=== PATIENT | female | born 1990 | race African-American/Black ===

== ENCOUNTER → 2024-09-14 10:43 | Outpatient (BNVA) | payer OTHER, SELFPAY | PROVIDERS: Visit Provider Psychiatry & Neurology Psychiatry | DX: F60.3 Borderline personality disorder (principal); F33.2 Major depressive disorder, recurrent severe without psychotic features; F10.10 Alcohol abuse, uncomplicated; F15.21 Other stimulant dependence, in remission; F43.12 Post-traumatic stress disorder, chronic | CPT/HCPCS: 80061; 83036 ==

== ENCOUNTER 2024-11-24 15:39 | Emergency (ER) | payer BC, MEDICAID, SELFPAY ==
[2024-09-15 12:55] VITALS: BP 133/80; BMI 48.1
[2024-11-24 15:43] VITALS: BP 136/83; PULSE 115; RESP 19; TEMP 36.8; O2SAT 98; BMI 48.9
--- NOTE | 2024-11-24 15:43 | XRR_ITS ---
PROCEDURE INFORMATION: Exam: XR Right Hip Exam date and time: 11/24/2024 5:00 PM Age: 34 years old Clinical indication: Hip pain; Right hip TECHNIQUE: Imaging protocol: Radiologic exam of the right hip. Views: 1 view hip with pelvis when performed. COMPARISON: No relevant prior studies available. FINDINGS: Bones/joints: No acute fracture or dislocation. Minimal degenerative change. Femoroacetabular joint spacing appears preserved. Soft tissues: Unremarkable. XR/XR hip RT 2-3V wo/w pel* [id number] IMPRESSION: No acute findings.
--- NOTE | 2024-11-24 17:10 | W.ED.EXTPRO ---
HPI - Extremity Problem General: Chief complaint: Extremity Problem,Nontraumatic Stated complaint: trouble with hip on right side Time Seen by Provider: 11/24/24 17:02 Source: patient Mode of arrival: ambulatory Limitations: no limitations History of Present Illness: 34-year-old female states she has right hip pain has been going on for roughly 2 years. States its worsened over the last 2 months states its much worse with ambulation is improved with rest denies any injuries states pain mainly in her hip does not radiate down her leg. States she has not seen anyone for this issue in the past. Rates her pain a 5 out of 10 currently Associated symptoms: Deny chest pain, fever(s) or rash Related Data Previous Rx's ?Medication ?Instructions ?Recorded doxepin 100 mg capsule 100 mg PO .HS #30 caps 09/01/24 hydroxyzine HCl 50 mg tablet 100 mg (2 x 50 mg) PO BID PRN 09/01/24 insomnia #60 tabs prazosin 2 mg capsule 2 mg PO .HS #30 caps 09/01/24 methocarbamol 750 mg tablet 750 mg PO Q6H PRN spasms #20 tabs 11/24/24 naproxen 500 mg tablet (Naprosyn) 500 mg PO BID PRN pain #20 tabs 11/24/24 Allergies Allergy/AdvReac Type Severity Reaction Status Date / Time Penicillins Allergy Severe Anaphylaxis Verified 11/24/24 15:47 trazodone AdvReac Intermediate Heart Uncoded 09/01/24 11:42 races & extremely dizzy Review of Systems Const: Denies: fever(s), chills, body aches or change in appetite ENMT: Denies: throat pain or dental pain Card: Denies: chest pain Resp: Denies: dyspnea GI: Denies: abdominal pain, nausea, vomiting or diarrhea Musc: Reports: extremity pain; Denies: neck pain or back pain Skin/Breast: Denies: rash Neuro: Denies: headache(s) PFSH ED PFSH: Medical History Psychiatric care Family History (Updated 09/14/24 @ 11:21 by Chelly Chaves RN) Other Bipolar disorder CAD (coronary artery disease) Diabetes Hypertension Schizophrenia Social History Smoking and tobacco/nicotine status: current every day tobacco/nicotine user e-cigarettes E-Cigarette Details: e-cigarette and with nicotine E-cig/vape details: 25,000 puffs last about 2 1/2 weeks Quit status (tobacco/nicotine): not considering quitting Second hand smoke exposure: No Alcohol intake: former Former alcohol use details: 11.10.2022 Substance/Drug Use: former Former substance use details: Adopted: No Caregiver/support person: No Lives independently: No Household members: children Housing: Apartment Marital status: Marital status details: Number of children: 7 Highest education level completed: High School Graduate service: No Current occupational status: employed Current occupation: [employer] Current occupational exposures/hazards: No Pets and animals: No Leisure activites: games and other Leisure activities details: play with kids, crochett Sexually active: No Do you think of yourself as: Straight/Heterosexual Current gender identity: Female Yelena/Episcopalian: None Special yelena needs: No Agree to transfusion: Yes Female Reproductive History: Para: 7 Spontaneous abortions: Yes (X4) Physical Exam Const: COMMON NORMALS: no acute distress, patient oriented x3 and healthy appearing HENMT: COMMON NORMALS: normocephalic and atraumatic HEAD & SCALP: normocephalic and atraumatic Eye: COMMON NORMALS: conjunctivae normal CONJUNCTIVA: Yes conjunctivae normal Neck/C-Spine: COMMON NORMALS: full ROM and supple Chest: COMMONS NORMALS: normal inspection of the chest Resp: COMMON NORMALS: normal respiratory effort Cardio: COMMON NORMALS: regular rate RATE: regular rate Extremity: COMMON NORMALS: normal to inspection and full ROM NARRATIVE EXTREMITY EXAM: Distal pulses sensation intact does have some pain in her right hip with palpation and with range of motion no obvious deformity Neuro: COMMON NORMALS: patient oriented x3, moves all extremities and no focal motor deficits Psych: COMMON NORMALS: mental status grossly normal, Normal thought process present and cooperative THOUGHT PROCESS: Normal thought process present Skin: COMMON NORMALS: no rashes or lesions noted and no wounds GENERAL SKIN EXAM: no rashes or lesions noted Course Vital Signs: Vital signs: Vital Signs Temperature 98.3 F 11/24/24 15:43 Pulse Rate 115 H 11/24/24 15:43 Respiratory Rate 19 H 11/24/24 15:43 Blood Pressure 136/83 11/24/24 15:43 Pulse Oximetry 98 11/24/24 15:43 Oxygen Delivery Me thod Room Air 11/24/24 15:43 MDM - Extremity (Nontraumatic) Medical Decision Making Patient presents with right hip pain has been chronic in nature x-ray here is negative patient stable for discharge follow-up with orthopedics return if worsening. Medical Records I reviewed the patient's medical records. XR interpretation done by ED provider, pending radiology final review ED provider radiology interpretation(s): xr r hip no acute abnormality Discharge Plan Discharge Patient Disposition: Home Clinical Impression: Right hip pain Condition: Stable Prescriptions: New methocarbamol 750 mg tablet 750 mg PO Q6H PRN (Reason: spasms) Qty: 20 0RF naproxen [Naprosyn] 500 mg tablet 500 mg PO BID PRN (Reason: pain) Qty: 20 0RF No Action doxepin 100 mg capsule 100 mg PO .HS Qty: 30 2RF hydroxyzine HCl 50 mg tablet 100 mg PO BID PRN (Reason: insomnia) Qty: 60 2RF prazosin 2 mg capsule 2 mg PO .HS Qty: 30 2RF Discharge Orders: Discharge ED (Routine); Ordered 11/24/24 Ordered By: Zachery Andrade Referrals: Zia Wallis MD [Referring, Emergency Medicine] Marito Fraser DO [Physician, Orthopedics] - 4-7 days Discharge Diet: Advance as tolerated Discharge Activity: Resume usual activity Patient Instructions: Hip Pain (ED) Print Language: Japanese Coding Level of Care Code ED Negative Cutter for Aiden Deras
[2024-11-24 17:30] VITALS: PULSE 98; O2SAT 99
[2024-11-24] MEDS: methocarbamol 750 mg Tablet 1500 MG PO (17:30)
[2024-11-24] MEDS: ketorolac 60 mg/2 mL INJ IM (17:30)
[2024-11-24] MEDS: dexamethasone 10 mg/mL INJ IM (17:30)
--- NOTE | 2024-11-25 07:38 | DCPLANNER ---
messaged ortho for er f/u
== END 2024-11-24 17:31 | disposition home or self-care (01) ==
PROVIDERS: Emergency Provider Emergency Medicine
DX: M25.551 Pain in right hip (principal); F17.290 Nicotine dependence, other tobacco product, uncomplicated
CPT/HCPCS: 73502; 96372; 99284; J1100; J1885; J9999

== ENCOUNTER → 2024-12-01 11:15 | Outpatient (BNVA) | payer BC, MEDICAID, SELFPAY ==
[2024-09-15 12:55] VITALS: BP 133/80; BMI 48.1
== END ==
PROVIDERS: Visit Provider Specialist
DX: M25.551 Pain in right hip (principal)
CPT/HCPCS: 73502

== ENCOUNTER 2024-12-29 11:09 | Outpatient (CLI) | payer BC, MEDICAID, SELFPAY ==
[2024-09-15 12:55] VITALS: BP 133/80; BMI 48.1
--- NOTE | 2024-12-29 11:00 | MR_ITS ---
WS: [id number] EXAMINATION: MR hip RT wo con* [id number] ORDER DATE: 12/29/2024 11:14 AM COMPARISON: None. HISTORY: Right hip pain CONTRAST: None. TECHNIQUE: Coronal STIR of the Pelvis. Coronal proton density, coronal T1, axial T2 fat sat, axial T1, sagittal T2 fat sat, and sagittal T1 performed of the hip. . FINDINGS: Some images are limited due to patient motion and respiratory artifact. Moderate joint space narrowing RIGHT hip somewhat advanced for patient of this age. Subchondral cystic change with edema in the anterior superior lateral acetabulum with bone marrow edema in the underlying acetabulum. Trace RIGHT hip effusion. Normal bone marrow signal in the femoral neck and proximal femoral shaft. Suggestion of slight subchondral cystic change in the femoral head although difficult to appreciate due to motion artifact. No significant bone marrow edema in the femoral head. Normal bone marrow signal in the partially visualized sacrum. No RIGHT inguinal lymphadenopathy. Anteverted uterus. Normal visualized bone marrow signal in the sacrum and coccyx. MR/MR hip RT wo con* [id number] IMPRESSION: 1. Moderate joint space narrowing RIGHT hip somewhat advanced for patient this age. 2. Subchondral cystic change in the anterior superior acetabulum with underlyi ng edema. Trace joint effusion RIGHT hip. 3. Slight suggestion subchondral cystic change in the RIGHT femoral head altho ugh difficult to appreciate due to motion artifact. Otherwise normal bone marro w signal in the RIGHT femoral head and neck. 4. No other acute findings.
== END 2024-12-29 11:10 | disposition home or self-care (01) ==
LOC: RAD 11:10
PROVIDERS: Visit Provider Specialist
DX: M25.551 Pain in right hip (principal); R60.0 Localized edema
CPT/HCPCS: 73721

== ENCOUNTER 2025-01-19 15:47 | Emergency (ER) | payer BC, MEDICAID, SELFPAY ==
[2024-09-15 12:55] VITALS: BP 133/80; BMI 48.1
[2025-01-19 15:48] VITALS: BP 120/85; PULSE 100; TEMP 37.3; O2SAT 96
--- NOTE | 2025-01-19 17:16 | ED_ITS ---
HPI - Dental/Oral General: Chief complaint: Dental/Oral Stated complaint: tooth pain broke L side Time Seen by Provider: 01/19/25 17:04 Source: patient Mode of arrival: ambulatory Limitations: no limitations History of Present Illness: 34-year-old female states she has had le ft lower dental pain with some swelling and swelling on the last few days. She rates her pain a 3 out of 10 she denies Diffley swallowing no trismus denies any worse improved factors Associated symptoms: Denies fever(s) Related Data Previous Rx's ?Medication ?Instructions ?Recorded methocarbamol 750 mg tablet 750 mg PO Q6H PRN spasms # 20 tabs 11/24/24 naproxen 500 mg tablet (Naprosyn) 500 mg PO BID PRN pa in #20 tabs 11/24/24 hydroxyzine HCl 50 mg tablet 100 mg (2 x 50 mg) PO BID PRN 11/25/24 insomnia #60 tabs doxepin 50 mg capsule 50 mg PO .HS #30 caps cephalexin 500 mg capsule 500 mg PO TID 7 days #21 cap s 01/19/25 Allergies Allergy/AdvReac Type Severity Reaction Status Date / Time Penicillins Allergy Severe Anaphylaxis Verified 01/19/25 16:00 quetiapine (From Seroquel) Allergy Mild ADR-Agitate Verified 01/19/25 16:00 d trazodone AdvReac Intermediate Heart Uncoded 01/19/25 16:00 races & extremely dizzy Review of Systems Const: Denies: fever(s), chills, body aches or change in appetite ENMT: Reports: dental pain; Denies: throat pain Card: Denies: chest pain Resp: Denies: dyspnea GI: Denies: abdominal pain, nausea, vomiting or diarrhea Musc: Denies: neck pain or back pain Skin/Breast: Denies: rash Neuro: Denies: headache(s) PFSH ED PFSH: Medical History Psychiatric care Family History Other Bipolar disorder CAD (coronary artery disease) Diabetes Hypertension Schizophrenia Social History Smoking and tobacco/nicotine status: former use of tobacco/nicotine Quit status (tobacco/nicotine): not considering quitting Second hand smoke exposure: No Alcohol intake: former Former alcohol use details: 11.10.2022 Substance/Drug Use: former Former substance use details: Adopted: No Caregiver/support person: No Lives independently: No Household members: children Housing: Apartment Marital status: Marital status details: Number of children: 7 Highest education level completed: High School Graduate service: No Current occupational status: employed Current occupation: [employer] Current occupational exposures/hazards: No Pets and animals: No Leisure activites: games and other Leisure activities details: play with kids, crochett Sexually active: No Do you think of yourself as: Straight/Heterosexual Current gender identity: Female Yelena/Rastafarian: None Special yelena needs: No Agree to transfusion: Yes Female Reproductive History: Para: 7 Spontaneous abortions: Yes (X4) Physical Exam Const: COMMON NORMALS: no acute distress, patient oriented x3 and healthy appearing HENMT: COMMON NORMALS: normocephalic and atraumatic HEAD & SCALP: normocephalic and atraumatic OTHER: Tenderness over left lower molar does have a small abscess no trismus Neck/C-Spine: COMMON NORMALS: full ROM and supple Chest: COMMONS NORMALS: normal inspection of the chest Resp: COMMON NORMALS: normal respiratory effort Cardio: COMMON NORMALS: regular rate RATE: regular rate Extremity: COMMON NORMALS: normal to inspection Neuro: COMMON NORMALS: patient oriented x3, moves all extremities and no focal motor deficits Psych: COMMON NORMALS: mental status grossly normal, Normal thought process present and cooperative THOUGHT PROCESS: Normal thought process present Skin: COMMON NORMALS: no rashes or lesions noted and no wounds GENERAL SKIN EXAM: no rashes or lesions noted Procedures Abscess I/D Site: oral Side (if applicable): left Technique: needle aspiration Irrigation: No Nerve Block Nerve Block 1: Time out performed: Yes Local Anesthetic: bupivacaine 0.5% Amount of anesthesia used (mL): 9 Intraoral Nerve Block: inferior alveolar Procedure Successful: Yes Patient Tolerated Procedure: well Complications: none Course Vital Signs: Vital signs: Vital Signs Temperature 99.2 F 01/19/25 15:48 Pulse Rate 100 01/19/25 15:48 Blood Pressure 120/85 01/19/25 15:48 Pulse Oximetry 96 01/19/25 15:48 Oxygen Delivery Me thod Room Air 01/19/25 15:48 MDM - Dental/Oral Medical Decision Making Patient presents for dental abscess I did perform a dental block and incised the abscess we will place her on Keflex she is to follow-up with dentist return if worsening. Medical Records I reviewed the patient's medical records. No radiology studies performed this visit Discharge Plan Discharge Patient Disposition: Home Clinical Impression: Dental abscess Condition: Stable Prescriptions: New cephalexin 500 mg capsule 500 mg PO TID 7 Days Qty: 21 0RF No Action doxepin 50 mg capsule 50 mg PO .HS Qty: 30 2RF hydroxyzine HCl 50 mg tablet 100 mg PO BID PRN (Reason: insomnia) Qty: 60 2RF methocarbamol 750 mg tablet 750 mg PO Q6H PRN (Reason: spasms) Qty: 20 0RF naproxen [Naprosyn] 500 mg tablet 500 mg PO BID PRN (Reason: pain) Qty: 20 0RF Discharge Orders: Discharge ED (Routine); Ordered 01/19/25 Ordered By: Zachery Andrade Discharge Diet: Advance as tolerated Discharge Activity: Resume usual activity Patient Instructions: Dental Abscess (ED) Print Language: Icelandic Coding Level of Care Code ED Child Custody Evaluator for Aiden Deras
[2025-01-19] MEDS: BUPivacaine 0.5% INJ 10 mL INJECTION (17:43)
== END 2025-01-19 17:47 | disposition home or self-care (01) ==
PROVIDERS: Emergency Provider Emergency Medicine
DX: K04.7 Periapical abscess without sinus (principal); Z87.891 Personal history of nicotine dependence
CPT/HCPCS: 40800; 99283; J3490